=== PATIENT | female | born 1980 | race Caucasian/White ===

== ENCOUNTER 2016-05-18 15:21 | Outpatient (CLI) | payer MEDICAID ==
[~2016-05-18] VITALS: Ht 162.6 cm; Wt 97.6 kg
[~2016-05-18 15:21] MED LIST: NO MEDS TAKEN; PREN1TAB49 PO
[2016-05-18 15:41] VITALS: Ht 162.6 cm; Wt 97.6 kg
[2016-05-18 15:42] VITALS: BP 131/63; PULSE 98; RESP 18
--- NOTE | 2016-05-18 16:03 | TRIAGE ---
OB Triage Datetime Report Generated by CPN: 05/18/2016 16:03 Datetime: 05/18/2016 15:53 Vaginal Exam Dilatation (cms): 0.0 Effacement (%): 40 Station: -3 Exam By: roberto carlos Vaginal Bleeding: None Cervix, Consistency: Firm Cervix, Position: Posterior Datetime: 05/18/2016 15:39 Assessment Type: Triage EGA: 34.0 Maternal Assessment Level of Consciousness: Fully Conscious DTR's/Clonus: DTRs 2+; No Clonus Headache: Denies Blurred Vision: No Respiratory Effort: Unlabored; Regular Rhythm; Equal Expansion Breath Sounds, Left: Clear and Equal Breath Sounds, Right: Clear and Equal Nausea/Vomiting: Denies RUQ Epigastric Pain: Denies Lower Extremities Edema: None Degree: None Upper Extremities Edema: None Degree: None Facial Edema: None Fall Risk Assessment History of Falling: (0) No Secondary Diagnosis: (0) No Ambulatory Aid: (0) Bedrest/Nurse Assist IV Therapy: (0) No Gait: (0) Normal/Bedrest/Immobile Mental Status: (0) Oriented to Own Ability Fall Score: 0 Fall Risk Score Definition: No Risk: No action required Datetime: 05/18/2016 15:38 Time of Arrival: 05/18/2016 15:15 Arrived By: Ambulatory Arrived From: Office Chief Complaint: PT SENT INTO R/O PTL Movement: Present Contractions: Denies/Absent Rupture of Membranes: Denies Vaginal Bleeding: None Vaginal Discharge: Denies Recent Sexual Intercouse: Denies Abdominal Trauma: Not Applicable Patient Complaints: None Time Provider Notified: 05/18/2016 15:50 Provider Notified: GINA Initial Plan: ARIE CARLOS
--- NOTE | 2016-05-18 22:12 | QN ---
Documentation Comment 35 years old with IUP at 34 weeks [address] care with Dr. Shields was sent to the office due to complaint of contractions that had about 3 days ago that currently stopped. She denies currently any cramps. leaking of fluids or decreased movement, She does not report any other complaint. Denies any complication in her course. GA: A&O, NAD Abdomen: soft, non tender, gravid FH consistent with GA NST: Cat 1 No contractions seen on the monitor SVE: closed and long and high Assessment: IUP at 34 weeks History of false labor pain that resolved no evidence of labor or PPROM Doing well DC home follow up in 2-3 days with her OB office PTL precaution and kick counts discussed Patient verbalized understandingt Adequate Hydration BERT GREER MD May 18, 2016 22:12
== END 2016-05-18 16:10 | disposition home or self-care (01) ==
LOC: OBT 15:21 → L-D 15:22 → OBT 16:10
PROVIDERS: ATTEND Obstetrics & Gynecology
DX: O47.03 False labor before 37 completed weeks of gestation, third trimester (principal); Z3A.34 34 weeks gestation of pregnancy
CPT/HCPCS: G0463

== ENCOUNTER 2016-06-09 19:06 | Outpatient (CLI) | payer MEDICAID ==
[~2016-06-09 19:06] MED LIST changes: -NO MEDS TAKEN
--- NOTE | 2016-06-09 21:27 | PN ---
Date/Time of Note Date/Time of Note DATE: 06/09/16 TIME: 21:21 OB Subjective Subjective Subjective patient c/o decreased movement x 1 wk; now feels baby moving no VB, no LOF, no ctx OB Objective Objective Objective Abdomen- gravid, n/t SVE- deferred FHT- Cat I [place]- no ctx Abdomen: WNL Extremities: Normal Accelerations: Accelerations Present Decelerations: No Decelerations Varibility: Moderate OB Assessment/Plan Other Assessment: patient has decreased FM, now feels baby moving - Cat I FHT - no ctx Other plan: NST/BPP reassuring status d/c home MORA SANCHEZ MD Jun 09, 2016 21:26
--- NOTE | 2016-06-09 21:44 | RADRPT ---
PROCEDURE: US OB biophysical profile. CLINICAL INDICATION: decreased movements TECHNIQUE: Multiple sonographic images of the pelvis were obtained. The images were reviewed on a PACS workstation. COMPARISON: No prior studies are available for comparison. FINDINGS: There is a single viable intrauterine gestation. Cardiac activity is present with 140 beats per min heidy. There is a vertex presentation. The placenta is anterior. There is no evidence of placental abruption. There is a normal amount of amniotic fluid with an GENE = 9.9 cm. Biophysical profile: movement 2/2 tone 2/2. breathing 2/2 GENE 2/2 Total 12/13 RPTAT: AA . IMPRESSION: Normal biophysical profile. . .Rc Islas MD, MD Date Time Electronically viewed and signed by .Rc Islas MD, MD on 06/09/2016 21:44 .S/
--- NOTE | 2016-06-09 21:53 | PN ---
Date/Time of Note Date/Time of Note DATE: 06/09/16 TIME: 21:44 OB Subjective Subjective Subjective 23 yo P2 @ 34 wks , presents with vaginal bleeding, which has stopped good FM,no LOF, no ctx OB Objective Objective Objective VS- WNL Abdomen- gravid, n/t SVE- l/c/p FHT- Cat I [place]- no ctx Abdomen: WNL Effacement: 0% Membranes: Intact Accelerations: Accelerations Present Decelerations: No Decelerations Varibility: Moderate Contractions on Admission: None OB Assessment/Plan Other Assessment: 23 yo P2 @ 34 wks w vaginal spotting, now resolved, blood type A+ -reassuring status - not in PTL Other plan: d/c home w PTL precautions MORA SANCHEZ MD Jun 09, 2016 21:53
--- NOTE | 2016-06-09 23:33 | TRIAGE ---
OB Triage Datetime Report Generated by CPN: 06/09/2016 23:33 Datetime: 06/09/2016 22:38 Stage of : OB Triage Datetime: 06/09/2016 22:00 Stage of : OB Triage Labor Evaluation Frequency: x2 Monitor Mode: External Duration (sec)2399: 40-60 Resting Tone [place]: Relaxed Heart Rate FHR Baseline Rate: 140 Monitor Mode: External US FHR Baseline Changes: No Baseline Change Variability: Moderate 6-25 bpm Accelerations: 15X15 Decelerations: None Category: Category I Datetime: 06/09/2016 21:36 Stage of : OB Triage Datetime: 06/09/2016 21:33 Stage of : OB Triage Datetime: 06/09/2016 21:00 Stage of : OB Triage Labor Evaluation Frequency: occasional Monitor Mode: External Duration (sec)2399: 40-100 Quality: Mild Resting Tone [place]: Relaxed Heart Rate FHR Baseline Rate: 145 Monitor Mode: External US Variability: Moderate 6-25 bpm Accelerations: 15X15 Decelerations: None Category: Category I Datetime: 06/09/2016 20:23 Assessment Type: Triage Maternal Assessment Level of Consciousness: Fully Conscious DTR's/Clonus: DTRs 1+ Headache: Denies Blurred Vision: Yes Respiratory Effort: Unlabored Breath Sounds, Left: Clear and Equal Breath Sounds, Right: Clear and Equal Nausea/Vomiting: Denies RUQ Epigastric Pain: Denies Lower Extremities Edema: None Degree: None Upper Extremities Edema: None Degree: None Facial Edema: None Fall Risk Assessment History of Falling: (0) No Secondary Diagnosis: (0) No Ambulatory Aid: (0) Bedrest/Nurse Assist IV Therapy: (0) No Gait: (0) Normal/Bedrest/Immobile Mental Status: (0) Oriented to Own Ability Fall Score: 0 Fall Risk Score Definition: No Risk: No action required Datetime: 06/09/2016 20:18 Monitor Mode: External Datetime: 06/09/2016 19:56 Stage of : OB Triage Datetime: 06/09/2016 19:47 Stage of : OB Triage Time of Arrival: 06/09/2016 19:02 EGA: 37.1 Arrived By: Ambulatory Arrived From: Dr. Saleh Chief Complaint: sENT FROM CLINIC FOR dfm Movement: Decreased Contractions: Denies/Absent Rupture of Membranes: Denies Vaginal Bleeding: None Vaginal Discharge: Denies Recent Sexual Intercouse: Denies Abdominal Trauma: Not Applicable Patient Complaints: Other Time Provider Notified: 06/09/2016 21:02 Provider Notified: GINA Initial Plan: VS, EFM, BPP Datetime: 05/18/2016 15:39 EGA: 34.0 Fall Score: 0 Fall Risk Score Definition: No Risk: No action required
== END 2016-06-09 23:05 | disposition home or self-care (01) ==
LOC: OBT 19:06 → L-D 19:06 → OBT 23:05
PROVIDERS: ATTEND Obstetrics & Gynecology
DX: O26.853 Spotting complicating pregnancy, third trimester (principal); O36.8130 Decreased fetal movements, third trimester, not applicable or unspecified; Z3A.34 34 weeks gestation of pregnancy
CPT/HCPCS: 76818; Z7500; G0463

== ENCOUNTER 2016-06-24 01:14 | Inpatient (IN) | payer MEDICAID ==
[~2016-06-24] VITALS: Ht 157.5 cm; Wt 101.3 kg
[2016-06-24 01:30] VITALS: BP 155/72; PULSE 62; RESP 20; Ht 157.5 cm; Wt 101.3 kg
[2016-06-24] MEDS ORDERED: OXYCODONE/ASPIRIN (4.88/325) TAB PO PRN (02:00)
[2016-06-24] MEDS ORDERED: OXYTOCIN 30 UNITS/LR 500 ML IV PRN (02:00)
[2016-06-24] MEDS ORDERED: CARBOPROST 250 MCG INJ IM PRN (02:00)
[2016-06-24] MEDS ORDERED: MISOPROSTOL 200 MCG TAB PR PRN (02:00)
[2016-06-24] MEDS ORDERED: METHYLERGONOVINE 0.2 MG INJ IM PRN (02:00)
[2016-06-24] MEDS ORDERED: LIDOCAINE 1% (MPF) 30 ML INJ INJ PRN (02:00)
[2016-06-24] MEDS ORDERED: BUTORPHANOL 2 MG INJ IV PRN ×2 (02:00)
[2016-06-24] MEDS ORDERED: IBUPROFEN 600 MG TAB PO PRN (02:00)
[2016-06-24] MEDS ORDERED: OXYTOCIN 30 UNITS/LR 500 ML IV SCH ×2 (02:00)
[2016-06-24 02:16] LABS: BASOPHILS % 0.3 % (0.0-2.0); EOSINOPHILS # 0.1 10^3/ul (0.0-0.5); EOSINOPHILS % 1.1 % (0.0-7.0); HEMATOCRIT 37.3 % (37.0-47.0); HEMOGLOBIN 12.7 g/dl (12.0-16.0); LYMPHOCYTES # 2.1 10^3/ul (0.8-2.9); LYMPHOCYTES % 22.8 % (15.0-51.0); MEAN CORPUSCULAR HEMOGLOBIN 31.5 pg (29.0-33.0); MEAN CORPUSCULAR VOLUME 92.7 fl (82.0-101.0); MEAN PLATELET VOLUME 9.9 fl (7.4-10.4); MONOCYTE # 0.8 10^3/ul (0.3-0.9); MONOCYTES % 8.8 % (0.0-11.0); PLATELET COUNT 178 10^3/UL (140-440); RED BLOOD COUNT 4.02 10^6/ul (4.20-5.40); RED CELL DISTRIBUTION WIDTH 15.9 % (11.5-14.5)
[2016-06-24] MEDS ORDERED: FENTAnyl 2MCG/ML-ROPIV 0.2% 100 ML ONE (02:17)
[2016-06-24 02:18] LABS: CONDITION 1; LH ANALYZER COMMENTS 1
[2016-06-24 02:29] LABS: INR 0.94; PROTIME 12.6 Sec (12.2-14.2)
[2016-06-24 02:30] LABS: PARTIAL THROMBOPLASTIN TIME 27.7 Sec (25.0-35.0)
[2016-06-24] MEDS ORDERED: DIPHENHYDRAMINE 50 MG INJ IV PRN (02:30)
[2016-06-24] MEDS ORDERED: LACTATED RINGER'S 1,000 ML IV PRN (02:30)
[2016-06-24] MEDS ORDERED: KETOROLAC 30 MG INJ IV PRN (02:30)
[2016-06-24] MEDS ORDERED: HYDROmorphONE 1 MG/ML SYG IV PRN ×2 (02:30)
[2016-06-24] MEDS ORDERED: ONDANSETRON 4 MG INJ IV PRN (02:30)
[2016-06-24] MEDS ORDERED: NALOXONE (0.4 MG/ML) INJ IV PRN (02:30)
[2016-06-24] MEDS ORDERED: AMPICILLIN 2 GM/NS (PMX) 100 ML IVPB ONE (02:30)
[2016-06-24] MEDS ORDERED: morphine 2 MG INJ IV PRN ×2 (02:30)
[2016-06-24] MEDS ORDERED: morphine 4 MG/ML VIAL IV PRN (02:33)
[2016-06-24] MEDS: AMPICILLIN 1 GM/NS (PMX) 50 ML IVPB SCH ×3 (06:32→13:00)
[2016-06-24] MEDS: LACTATED RINGER'S 1,000 ML IV SCH ×3 (07:23→15:54)
[2016-06-24] MEDS: FENTAnyl 2MCG/ML-ROPIV 0.2% 100 ML BAG EPI SCH ×3 (08:07→19:20)
[2016-06-24] MEDS ORDERED: MINERAL OIL LIGHT 10 ML VIAL TOP ONE (11:00)
[2016-06-24] MEDS ORDERED: MAGNESIUM SULFATE 4 GM/100 ML 100 ML ONE (19:08)
[2016-06-24 19:20] LABS: ADD UMIC YES; URINE BILIRUBIN (Dip) NEGATIVE (NEGATIVE); URINE BLOOD (Dip) 3+ (NEGATIVE); URINE GLUCOSE (Dip) NEGATIVE (NEGATIVE); URINE KETONES (Dip) NEGATIVE (NEGATIVE); URINE LEUKOCYTE ESTERASE (Dip) NEGATIVE (NEGATIVE); URINE NITRITE (Dip) NEGATIVE (NEGATIVE); URINE TOTAL PROTEIN (Dip) 1+ (NEGATIVE); URINE UROBILINOGEN (Dip) 0.2 E.U./dL (0.1-1.0)
[2016-06-24] MEDS ORDERED: MAGNESIUM SULFATE 4 GM/100 ML IVPB ONE (19:30)
[2016-06-24] MEDS: MAGNESIUM SULFATE 20 GM/500 ML 500 ML IV SCH (19:41)
[2016-06-24 19:46] LABS: URINE COLOR YELLOW (YELLOW)
[2016-06-24 19:47] LABS: BACTERIA,URINE FEW; TRANSITIONAL EPI CELLS,URINE MODERATE; URINE RBCS 25-50 /HPF (0)
[2016-06-24] MEDS ORDERED: CEFAZOLIN 2 GM/50 ML (PMX) 50 ML IVPB ONE (20:21)
[2016-06-24 20:22] LABS: ALBUMIN 3.1 g/dl (3.3-4.9)
[2016-06-24 20:24] LABS: BILIRUBIN,INDIRECT 0.3 mg/dl (0-1.1); BILIRUBIN,TOTAL 0.3 mg/dl (0.2-1.3); CREATININE 0.62 mg/dl (0.44-1.00)
[2016-06-24 20:25] LABS: ALBUMIN/GLOBULIN RATIO 0.93; TOTAL PROTEIN 6.4 g/dl (6.1-8.1); URIC ACID 6.2 mg/dl (3.1-7.9)
[2016-06-24 20:26] LABS: CALCIUM 8.7 mg/dl (8.4-10.2)
[2016-06-24] MEDS ORDERED: CEFAZOLIN 2 GM/50 ML (PMX) 50 ML IV SCH (20:30)
[2016-06-24] MEDS ORDERED: PHENYLephrine (100 MCG/ML) 5ML SYG ONE (20:48)
[2016-06-24] MEDS ORDERED: FENTAnyl 50 MCG/ML VIAL ONE (21:01)
[2016-06-24] MEDS ORDERED: morphine SULFATE/PF (10 MG/10 ML) INJ ONE (21:01)
[2016-06-24] MEDS ORDERED: morphine 10 MG INJ ONE (21:08)
--- NOTE | 2016-06-24 21:52 | HP ---
Date/Time of Note Date/Time of Note DATE: 06/24/16 TIME: 21:48 OB - History Hx of Present Free Text/Dictation admitted in labor a term Chief Complaint: labor pains Last Menstrual Period: September 24, 2015 Estimated Due Date: Jun 29, 2016 : 2 Para: 1 Care: Good Care Ultrasounds: Normal mid trimester US (last EFW was 4429gm ) Obstetrical Complications: None Medical Complications: None Past Family/Social History * Past Medical, Surgical, Family and Obstetric Histories reviewed from chart. Blood Type: O+ Rubella: immune RPR/VDRL: Negative GBS Status: Negative HBsAG: Negative OB Admission Exam Vital Signs Vital Signs Vital Signs Date Time Temp Pulse Resp B/P Pulse Ox O2 Delivery O2 Flow Rate FiO2 06/24/16 01:30 98.5 62 20 155/72 Room Air Physical Exam HEENT: WNL Heart: Rhythm Normal Lungs: Clear, Equal Abdomen: WNL Extremities: Normal Reflexes: Normal Cervical Dilatation: 4cm Effacement: 75% Station: -3 Membranes: Intact Heart Rate: 140's Accelerations: Accelerations Present Decelerations: No Decelerations Varibility: Moderate Contractions on Admission: < 5 Minutes Apart Date/Time Contractions Began: 06/23/2016 Frequency of Contractions: q 5 Duration: >45 60 seconds Intensity: Moderate Last 72 hours Lab Results CBC & BMP 06/24/16 02:00 06/24/16 19:26 Liver Function Test 06/24/16 19:26 Alanine Aminotransferase (ALT/SGPT) 12 L Albumin 3.1 L Alkaline Phosphatase 208 H Aspartate Amino Transf (AST/SGOT) 19 Direct Bilirubin 0.00 Total Protein 6.4 Magnesium Level Test 06/24/16 19:26 Magnesium Level 2.4 OB Assessment/Plan Other Assessment: term gestation labor pains possible macrosomia Other plan: proceed with labor JOB LOCO MD Jun 24, 2016 21:52
--- NOTE | 2016-06-24 21:56 | QN ---
Documentation Comment patient progressed her cervical dilatation to 9 cm and had no further progress regardless os adequate contractions X 2-3 hours until self decided to have C/S as mode of her delivery . Patient had good awareness of nature and complications of C/S procedure including but but limited to infection and hemorrhage and agreed to undergo C/S . JOB LOCO MD Jun 24, 2016 21:56
--- NOTE | 2016-06-24 21:58 | OPR ---
Operative Report Planned Procedure Procedure date Jun 24, 2016 Procedure(s) primary C/S Performed by: JOB LOCO MD Assisting provider: SILVIA MONTOYA MD Anesthesiologist: GEOVANI NAGY MD Pre-procedure diagnosis Arrest of dilatation and decent term gestation labor pains Anesthesia Type: epidural Procedure Description Under satisfactory anaesthesia a Pfannenstiel incision was made two fingerbreadth above and parallel to the symphysis of pubis. Incision was extended laterally to the border of the Recti muscles on either sides. Incision was carried down with sharp and blunt dissection until fascia was reached. Anterior Recti muscle fascia was incised in mid portion and incision extended laterally to the border of skin incision. Fascia was mobilized from muscle superiorly and Recti muscles were from midline using sharp and blunt dissection. Peritoneum was visualized; Avoiding bowel and bladder it was incised . Incision was extended superiorly and inferiorly. Bladder blade was placed. Posterior peritoneum covering the lower segment of the uterus and lower segment of the uterus were incised. Incision was extended laterally to the border of Round Lig. on either sides and baby was delivered from OP. position . Amniotic fluid appeared clear. Cord blood was obtained and cord had 3 vessels . Placenta was delivered spontaneously and appeared intact and complete. Intrauterine cavity was rubbed with a laparotomy sponge. Uterine incision was closed in 2 layers using running stitches of No1 Monocryl. Hemostasis appeared secure. Ovaries and Fallopian tubes were within normal limits. Announcing needle, lap sponge and instrument count to be correct abdomen was closed in layers as follows: Peritoneum and Recti muscles with running stitches of 20 Vicryl. Fascia with running stitch of No 1 PDS. Subcutaneous tissue with running stitches of 20 Chromic and skin was closed using allyssa. Patient tolerated the procedure well and was transferred to [facility] in good condition. Post-Procedure Post-procedure diagnosis S/P C/S Findings: Live Baby Specimen removed: Yes Complications: None Pt Condition post procedure: stable Disposition: PACU Physician Certification I, the undersigned physician, hereby certify that I have discussed the procedure described in this consent form with this patient (or the patient's legal textile designs sales representative), including: * The risk and benefits of the procedure; * Any adverse reactions that may reasonably be expected to occur; * Any alternative efficacious methods of treatment which may be medically viable ; * The potential problems that may occur during recuperation; * Potential for blood transfusion and associated risks/benefits; and * Any research or economic interest I may have regarding this treatment. I further certify that the patient/legally responsible person was encouraged to ask question and that all questions were answered. JOB LOCO MD Jun 24, 2016 21:58
[2016-06-25] VITALS (19 sets, daily range): BP systolic 120–178; BP diastolic 57–89; PULSE 69–95; RESP 18–20
[2016-06-25] MEDS ORDERED: DIPHENHYDRAMINE 50 MG INJ IV PRN
[2016-06-25] MEDS ORDERED: NALOXONE (0.4 MG/ML) INJ IV PRN
[2016-06-25] MEDS ORDERED: ONDANSETRON 4 MG INJ IV PRN
[2016-06-25] MEDS ORDERED: morphine 2 MG INJ IV PRN
[2016-06-25] MEDS ORDERED: ZOLPIDEM 5 MG TAB PO PRN (01:30)
[2016-06-25] MEDS ORDERED: WITCH HAZEL/GLYCERIN PAD PR PRN (01:30)
[2016-06-25] MEDS ORDERED: BENZOCAINE 20% 56 ML SPRAY TOP PRN (01:30)
[2016-06-25] MEDS ORDERED: MISOPROSTOL 200 MCG TAB PR PRN (01:30)
[2016-06-25] MEDS ORDERED: CARBOPROST 250 MCG INJ IM PRN (01:30)
[2016-06-25] MEDS ORDERED: DIBUCAINE 1% 30 GM OINT PR PRN (01:30)
[2016-06-25] MEDS ORDERED: METHYLERGONOVINE 0.2 MG INJ IM PRN (01:30)
[2016-06-25] MEDS ORDERED: LANOLIN 7 GM TUBE TOP PRN (01:30)
[2016-06-25] MEDS ORDERED: OXYTOCIN 30 UNITS/LR 500 ML IV PRN (01:30)
[2016-06-25] MEDS: LACTATED RINGER'S 1,000 ML IV* SCH ×3 (02:31→17:28)
[2016-06-25] MEDS: MAGNESIUM SULFATE 20 GM/500 ML 500 ML IV SCH ×2 (02:33→16:14)
[2016-06-25] MEDS: KETOROLAC 30 MG INJ IV PRN ×2 (06:08→13:52)
[2016-06-25 08:28] LABS: BASOPHILS % 0.3 % (0.0-2.0); EOSINOPHILS # 0.1 10^3/ul (0.0-0.5); EOSINOPHILS % 0.8 % (0.0-7.0); LYMPHOCYTES # 1.5 10^3/ul (0.8-2.9); MEAN CORPUSCULAR HEMOGLOBIN 31.8 pg (29.0-33.0); MEAN CORPUSCULAR HGB CONC 34.2 g/dl (32.0-37.0); MEAN CORPUSCULAR VOLUME 92.8 fl (82.0-101.0); MEAN PLATELET VOLUME 9.4 fl (7.4-10.4); MONOCYTE # 0.5 10^3/ul (0.3-0.9); MONOCYTES % 4.5 % (0.0-11.0); NEUTROPHIL # 9.5 10^3/ul (1.6-7.5); NEUTROPHILS % 81.4 % (39.0-77.0); PLATELET COUNT 145 10^3/UL (140-440); RED BLOOD COUNT 3.45 10^6/ul (4.20-5.40); RED CELL DISTRIBUTION WIDTH 16.1 % (11.5-14.5); UNCORRECTED WBC 11.6 10^3/ul (4.8-10.8); WHITE BLOOD COUNT 11.6 10^3/ul (4.8-10.8)
[2016-06-25 08:36] LABS: CONDITION 1; LH ANALYZER COMMENTS 1
[2016-06-25] MEDS: BISACODYL 10 MG SUPP PR ONE ×2 (09:00→14:36)
[2016-06-25] MEDS: MAGNESIUM HYDROXIDE 30ML CUP PO SCH ×2 (09:43→21:00)
[2016-06-25] MEDS: SENNA/DOCUSATE NA (8.6MG/50MG) TAB PO SCH ×2 (09:43→21:00)
[2016-06-25] MEDS ORDERED: ACETAMINOPHEN/CODEINE #3 TAB PO PRN ×2 (20:00)
--- NOTE | 2016-06-25 23:07 | DS ---
Date/Time of Note Date/Time of Note home next day DATE: 06/25/16 TIME: 23:06 Obstetrical Discharge Record Final Diagnosis Final Diagnosis: Term delivered Vaginal Delivery Obstetrical Delivery: Spontaneous, Laceration, Repaired Complications Augmentation: Yes Induction: Yes Condition on Discharge Physical Assessment Last Vitals: see nurses note Voiding: Yes Bowel Movement: Yes Breast: Soft, non-tender, Filling Fundus: Firm Abdomen and Incision: soft, BS+ Episiotomy: NA Calf Tenderness: No Patient Condition: Good JOB LOCO MD Jun 25, 2016 23:07
--- NOTE | 2016-06-25 23:10 | PN ---
Date/Time of Note Date/Time of Note DATE: 06/25/16 TIME: 23:08 Assessment/Plan VTE Prophylaxis VTE Prophylaxis Intervention: ambulation Lines/Catheters IV Catheter Type (from Nrsg): Peripheral IV Assessment/Plan Assessment/Plan S/P C/S POD # 1 will advance diet and ambulate Subjective 24 Hr Interval Summary NO BM Passing flatus Constitutional: BM, ambulates, flatus, improved, no complaints, urine output Pain Control: well controlled Exam/Review of Systems Vital Signs Vitals Vital Signs Date Time Temp Pulse Resp B/P Pulse Ox O2 Delivery O2 Flow Rate FiO2 06/25/16 21:15 18 139/73 Room Air 06/25/16 20:16 97 21 06/25/16 20:00 98.0 82 Intake and Output 06/24/16 06/24/16 06/25/16 15:00 23:00 07:00 Intake Total 100 ml 300 ml 875 ml Output Total 500 ml 950 ml 2970 ml Balance -400 ml -650 ml -2095 ml Exam Free Text/Dictation Abdomen: soft bs+ Constitutional: alert, oriented, well developed Psych: nl mood/affect, no complaints Head: atraumatic, normocephalic Eyes: EOMI, nl conjunctiva, nl lids, nl sclera ENMT: mucosa pink and moist, nl external ears & nose, nl lips & teeth, nl nasal mucosa & septum Neck: non-tender, supple Respiratory: clear to auscultation, normal air movement Cardiovascular: nl pulses, regular rate and rhythm Gastrointestinal: nl liver, spleen, non-tender, soft Musculoskeletal: nl extremities to inspection, nl gait and stance Extremities: normal pulses Neurological: STAFF COUNSEL II-XII intact, nl mental status, nl speech, nl strength Skin: nl turgor, rash or lesions Lymph: nl lymph nodes Results Result Diagram: 06/25/16 0810 06/24/161925 JOB LOCO MD Jun 25, 2016 23:10
[2016-06-25] MEDS: IBUPROFEN 600 MG TAB PO SCH (23:34)
[2016-06-26] MEDS: LACTATED RINGER'S 1,000 ML IV* SCH ×3 (01:28→17:28)
--- NOTE | 2016-06-26 03:08 | DS ---
Date/Time of Note Date/Time of Note home next day DATE: 06/26/16 TIME: 03:06 Obstetrical Discharge Record Final Diagnosis Final Diagnosis: Term delivered Other Final Diagnosis S/P C/S Section Section: Primary Primary Indication Arrest of dilatation Condition on Discharge Physical Assessment Last Vitals: see nurses notes Voiding: Yes Bowel Movement: Yes Breast: Soft, non-tender, Filling Fundus: Firm Abdomen and Incision: soft B S Incision healing Episiotomy: NA Calf Tenderness: No Patient Condition: Good JOB LOCO MD Jun 26, 2016 03:08
--- NOTE | 2016-06-26 03:10 | DS ---
Date/Time of Note Date/Time of Note DATE: 06/26/16 TIME: 03:08 Discharge Summary Admission/Discharge Info Admit Date/Time Jun 24, 2016 at 02:16 Discharge Date/Time 06/27/2016 Final Diagnosis S/P C/S Patient Condition: Good Procedures primary C/S Hx of Present Illness 36 y/o female had primary C/S Hospital Course uncomplicated Home Meds Reported Medications Vits W-Ca,Fe,Fa(<1MG) () 1 Tab Tablet, 1 TAB PO 05/02/12 Follow-up Plan 2 days in clinic for staple removal Pending Labs Laboratory Tests Test 06/25/16 08:10 06/25/16 11:51 06/25/16 17:55 Basophils # 0.010^3/ul (0.0-0.1) Basophils % 0.3% (0.0-2.0) Blood Morphology Comment Eosinophils # 0.110^3/ul (0.0-0.5) Eosinophils % 0.8% (0.0-7.0) Hematocrit 32.0% (37.0-47.0) Hemoglobin 11.0g/dl (12.0-16.0) Lymphocytes # 1.510^3/ul (0.8-2.9) Lymphocytes % 13.0% (15.0-51.0) Magnesium Level 3.3mg/dl (1.7-2.5) 3.5mg/dl (1.7-2.5) 3.4mg/dl (1.7-2.5) Mean Corpuscular Hemoglobin 31.8pg (29.0-33.0) Mean Corpuscular Hemoglobin Concent 34.2g/dl (32.0-37.0) Mean Corpuscular Volume 92.8fl (82.0-101.0) Mean Platelet Volume 9.4fl (7.4-10.4) Monocytes # 0.510^3/ul (0.3-0.9) Monocytes % 4.5% (0.0-11.0) Neutrophils # 9.510^3/ul (1.6-7.5) Neutrophils % 81.4% (39.0-77.0) Nucleated Red Blood Cells # 0.010^3/ul (0.0-0.0) Nucleated Red Blood Cells % 0.0/100WBC (0.0-0.0) Platelet Count 45122^3/UL (140-440) Red Blood Count 3.4510^6/ul (4.20-5.40) Red Cell Distribution Width 16.1% (11.5-14.5) White Blood Count 11.610^3/ul (4.8-10.8) JOB LOCO MD Jun 26, 2016 03:09
--- NOTE | 2016-06-26 03:11 | PD.PPDC ---
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
[2016-06-26] MEDS: OXYCODONE/ACETAMINOPHEN (5/325) TAB PO PRN ×3 (03:24→17:02)
[2016-06-26 04:04] VITALS: BP 132/62; PULSE 92; RESP 18
[2016-06-26] MEDS: IBUPROFEN 600 MG TAB PO SCH ×4 (05:34→23:54)
[2016-06-26 08:25] LABS: BASOPHILS % 0.3 % (0.0-2.0); EOSINOPHILS # 0.1 10^3/ul (0.0-0.5); EOSINOPHILS % 1.2 % (0.0-7.0); HEMATOCRIT 33.5 % (37.0-47.0); HEMOGLOBIN 11.7 g/dl (12.0-16.0); LYMPHOCYTES % 17.3 % (15.0-51.0); MEAN CORPUSCULAR HEMOGLOBIN 32.6 pg (29.0-33.0); MEAN CORPUSCULAR HGB CONC 34.9 g/dl (32.0-37.0); MEAN CORPUSCULAR VOLUME 93.5 fl (82.0-101.0); MEAN PLATELET VOLUME 9.9 fl (7.4-10.4); MONOCYTE # 0.7 10^3/ul (0.3-0.9); MONOCYTES % 5.9 % (0.0-11.0); NEUTROPHIL # 8.6 10^3/ul (1.6-7.5); NEUTROPHILS % 75.3 % (39.0-77.0); PLATELET COUNT 166 10^3/UL (140-440); RED BLOOD COUNT 3.59 10^6/ul (4.20-5.40); RED CELL DISTRIBUTION WIDTH 16.5 % (11.5-14.5); UNCORRECTED WBC 11.4 10^3/ul (4.8-10.8); WHITE BLOOD COUNT 11.4 10^3/ul (4.8-10.8)
[2016-06-26 08:40] LABS: CONDITION 1; LH ANALYZER COMMENTS 1
[2016-06-26 08:53] VITALS: BP 133/70; PULSE 69; RESP 20
[2016-06-26] MEDS ORDERED: VARICELLA VACCINE LIVE/PF 1,350 UNIT/0.5 ML ML SC* ONE (09:00)
[2016-06-26] MEDS: MAGNESIUM HYDROXIDE 30ML CUP PO SCH ×2 (09:00→21:55)
[2016-06-26] MEDS ORDERED: DIPHTH/TET/ACEL PERTUSS (ADULT) 0.5 ML VIAL IM* ONE (09:00)
[2016-06-26] MEDS: SENNA/DOCUSATE NA (8.6MG/50MG) TAB PO SCH ×2 (09:00→21:55)
[2016-06-26] MEDS ORDERED: MEASLES,MUMPS,RUBELLA VACCINE INJ SC* ONE (09:00)
[2016-06-26] MEDS ORDERED: INFLUENZA VIRUS VACCINE 0.5 ML (DISPENSING) IM* ONE (10:00)
[2016-06-26 13:00] VITALS: BP 162/78; PULSE 61; RESP 20
[2016-06-26 16:10] VITALS: BP 172/81; PULSE 59; RESP 20
[2016-06-26] MEDS: LABETALOL 200 MG TAB PO SCH (17:02)
[2016-06-26 18:23] VITALS: BP 165/77; PULSE 66
[2016-06-27] MEDS: LACTATED RINGER'S 1,000 ML IV* SCH (01:28)
[2016-06-27 03:56] VITALS: BP 133/66; PULSE 72; RESP 20
[2016-06-27] MEDS: IBUPROFEN 600 MG TAB PO SCH ×3 (05:33→17:59)
[2016-06-27] MEDS: OXYCODONE/ACETAMINOPHEN (5/325) TAB PO PRN (08:01)
[2016-06-27] MEDS: LABETALOL 200 MG TAB PO SCH (08:01)
[2016-06-27] MEDS: SENNA/DOCUSATE NA (8.6MG/50MG) TAB PO SCH (08:01)
[2016-06-27] MEDS: MAGNESIUM HYDROXIDE 30ML CUP PO SCH (08:01)
[2016-06-27 08:02] VITALS: BP 150/78; PULSE 71; RESP 18
[2016-06-27] MEDS ORDERED: INFLUENZA VIRUS VACCINE 0.5 ML (DISPENSING) IM* ONE (09:00)
[2016-06-27 11:48] VITALS: BP 146/67; PULSE 75; RESP 18
[2016-06-27] MEDS ORDERED: IBUP-1542 PO (15:54)
[2016-06-27] MEDS ORDERED: LAB200 PO (15:54)
[2016-06-27] MEDS ORDERED: Oxycodone/Acetamin (5/325) PO (15:54)
[2016-06-27 16:20] VITALS: BP 144/66; PULSE 87; RESP 18
== END 2016-06-27 19:09 | disposition home or self-care (01) | DRG 766 ==
LOC: L-D 01:14 → OBT 01:14 → L-D 01:34 → OBT 02:16 → PP1 06-25 01:15
PROVIDERS: ADMIT Obstetrics & Gynecology; ATTEND Obstetrics & Gynecology
PROC: 10D00Z1 Extraction of Products of Conception, Low, Open Approach (ICD-10-PCS; principal; 2016-06-24 20:45)
DX: O62.1 Secondary uterine inertia (principal); Z37.0 Single live birth; Z3A.39 39 weeks gestation of pregnancy
CPT/HCPCS: 62319; 80053; 81001; 81003; 83735; 84560; 85025; 85610; 85730; 86592; 86900; 86901; 90686; 90715; 90716; 94760; 99464; G0463; J0290; J0690; J1170; J1885; J2270; J2274; J2370; J2405; J3010; J3475; J7120